=== PATIENT | female | born 1990 | race Caucasian/White ===

== ENCOUNTER 2019-02-26 08:36 | Emergency (ER) | payer OTHER ==
[2019-02-26] MEDS: ACETAMINOPHEN 325 MG TAB PO (09:30)
== END 2019-02-26 09:54 | disposition home or self-care (01) ==
LOC: FTE 09:54
DX: H10.30 Unspecified acute conjunctivitis, unspecified eye (principal); J02.0 Streptococcal pharyngitis; H60.90 Unspecified otitis externa, unspecified ear
CPT/HCPCS: 99283; Z7502